=== PATIENT | male | born 1940 | race Caucasian/White ===

== ENCOUNTER 2019-03-04 18:22 | Observation (INO) | payer MEDICARE, OTHER ==
[~2019-03-04] VITALS: Ht 190.5 cm; Wt 109.9 kg
[2019-03-04] MEDS ORDERED: FLOM0.4C39 PO (18:37)
[2019-03-04] MEDS ORDERED: ASPI81TA85 PO (18:37)
[2019-03-04] MEDS ORDERED: LYRI150C PO (18:37)
[2019-03-04] MEDS ORDERED: COUM7.5T PO (18:37)
[2019-03-04] MEDS ORDERED: MAGN1CAP PO (18:37)
[2019-03-04] MEDS ORDERED: FAMO1TAB25 PO (18:37)
[2019-03-04] MEDS ORDERED: SIMV10TA2 PO (18:37)
[2019-03-04] MEDS ORDERED: NS 1,000 ML IV ONE (20:30)
[2019-03-04] MEDS: TAMSULOSIN 0.4 MG CAP PO SCH (21:00)
[2019-03-04 21:11] LABS: BASO % 0.3 % (0.0-1.0); EOS # 0.3 10^3/uL (0.0-0.50); EOS % 4.2 % (0.0-3.0); HEMATOCRIT 41.2 % (42.0-52.0); HEMOGLOBIN 13.5 g/dl (13.5-17.5); LYMPH # 2.2 10^3/uL (1.5-4.5); LYMPH % 35.9 % (24.0-44.0); MEAN CORPUSCULAR HEMOGLOBIN 32.9 pg (27.0-33.0); MEAN CORPUSCULAR HGB CONC 32.8 g/dl (32.0-36.5); MEAN CORPUSCULAR VOLUME 100.5 fl (80.0-96.0); MONO # 0.6 10^3/uL (0.0-0.8); MONO % 10.3 % (0.0-5.0); PLATELET COUNT, AUTOMATED 160 10^3/uL (150-450); WHITE BLOOD COUNT 6.2 10^3/uL (4.0-10.0)
[2019-03-04 21:22] LABS: INR 2.52; PARTIAL THROMBOPLASTIN TIME 47.9 SECONDS (25.0-38.4)
[2019-03-04 21:32] LABS: ERYTHROCYTE SEDIMENTATION RATE 8 mm/hr (0-20)
[2019-03-04 21:34] LABS: ALBUMIN 3.4 GM/DL (3.2-5.2); ALT/SGPT 27 U/L (12-78); BILIRUBIN,DIRECT 0.3 MG/DL (0.0-0.2); BILIRUBIN,TOTAL 0.5 MG/DL (0.2-1.0); BLOOD UREA NITROGEN 9 MG/DL (7-18); CALCIUM LEVEL 8.7 MG/DL (8.8-10.2); CARBON DIOXIDE LEVEL 33 MEQ/L (21-32); CHLORIDE LEVEL 106 MEQ/L (98-107); CREATININE FOR GFR 0.75 MG/DL (0.70-1.30); GLOMERULAR FILTRATION RATE > 60.0 (>35); GLUCOSE, FASTING 90 MG/DL (70-100); POTASSIUM SERUM 4.3 MEQ/L (3.5-5.1); SODIUM LEVEL 142 MEQ/L (136-145); TOTAL PROTEIN 6.5 GM/DL (6.4-8.2)
[2019-03-04] MEDS ORDERED: WARF-23 PO (23:07)
[2019-03-04] MEDS ORDERED: CLEO300C2 PO (23:09)
[2019-03-04] MEDS ORDERED: MAALOX 30 ML SUSP *UDC PO PRN (23:45)
[2019-03-04] MEDS ORDERED: MOM 30ML SUSPENSION UDC PO PRN (23:45)
[2019-03-04] MEDS ORDERED: ACETAMINOPHEN TAB 650MG DOSE (2X325MG) PO PRN (23:45)
--- NOTE | 2019-03-04 23:54 | HPEPDOC ---
General Date of Admission 03/04/19 Date of Service: Mar 04, 2019 Attending Physician: MICHELA MARROQUIN MD Chief Complaint The patient is a 78-year-old male admitted with a reason for visit of Leg Pain. Source: Patient Exam Limitations: No limitations Timing/Duration: Day(s) (7-10 days) Severity: Mild Associated Symptoms: Other History of Present Illness 78 years old white male with past medical history of hyperlipidemia, aortic wall replacement, 2 knee replacements, had developed cellulitis of his right lower extremity below the knee and just above the right ankle with swelling and he was seen by his doctor at [facility] and was started on by mouth antibiotics. Patient did not respond to the by mouth antibiotics. His leg is slightly decreased swelling but is still red and verrucous-like formation at the right lower extreme just above the medial malleolus. Patient presented to [facility] ED for possible admission. Patient denies chest pain, shortness of breath, nausea, vomiting, difficulty ambulation, etc. Home Medications Scheduled Aspirin (Aspir 81) 81 Mg Tablet.dr, 81 MG PO QHS, (Reported) Clindamycin Hcl (Cleocin HCl) 300 Mg Capsule, 300 MG PO Q8H, (Reported) TO TAKE X 10 DAYS. PATIENT STATES THAT HE HAS ONE CAPSULE LEFT IN HIS BOTTLE. Famotidine (Famotidine) 10 Mg Tablet, 5 MG PO DAILY, (Reported) Magnesium Oxide (Magnesium) 500 Mg Capsule, 500 MG PO DAILY, (Reported) Pregabalin (Lyrica) 150 Mg Capsule, 150 MG PO BID, (Reported) Simvastatin (Simvastatin) 10 Mg Tablet, 10 MG PO DAILY, (Reported) Tamsulosin HCl (Flomax) 0.4 Mg Capsule, 0.8 MG PO QHS, (Reported) Warfarin Sodium (Coumadin) 7.5 Mg Tablet, 7.5 MG PO 5XW, (Reported) SUN/THU/THU/THU/SAT Warfarin Sodium (Warfarin Sodium) 5 Mg Tablet, 5 MG PO 2XW, (Reported) / Allergies Coded Allergies: No Known Allergies (Unverified , 03/04/19) Past Medical History Medical History Hyperlipidemia, aortic wall replacement, bilateral knee replacement Surgical History Bilateral knee replacement and aortic wall replacement Family History Father had heart disease and mother had breast cancer Social History * Smoker: Denies Alcohol: Denies Drugs: denies A-FIB/CHADSVASC A-FIB History Current/History of A-Fib/PAF?: No Review of Systems Constitutional: Denies: Chills, Fever, Malaise, Night Sweats, Weakness, Fatigue, Weight Loss, Lethargy, Other Eyes: Denies: Pain, Vision change, Conjunctivae inflammation, Eyelid inflammation, Redness, Other ENT: Denies: Head Aches, Ear Pain, Dysphagia, Sinus Congestion, Post Nasal Drip, Sore Throat, Epistaxis, Other Symptoms Skin: Denies: Rash, Lesions, Jaundice, Bruising, Itching, Dry, Breakdown, Nail Changes, Other Pulmonary: Denies: Dyspnea, Cough, Pleuritic Chest Pain, Other Symptoms Cardiovascular: Denies: Chest Pain, Palpitations, Orthopnea, Paroxysmal Noc. Dyspnea, Edema, Lt Headedness, Other Symptoms Gastrointestinal: Denies: Nausea, Vomiting, Abdominal Pain, Diarrhea, Constipation, Melena, Hematochezia, Other Symptoms Genitourinary: Denies: Dysuria, Frequency, Incontinence, Hematuria, Retention, Other Symptoms Hematologic: Denies: Bruising, Bleeding Excessively, Petecchia, Purpura, Enlarged Lymph Nodes, Other Hematologic Endocrine: Denies: Polydipsia, Polyphagia, Polyuria, Heat Intolerance, Cold Intolerance, Other Endocrine Sx Musculoskeletal: Reports: Other Symptoms (, redness, swelling and some overall wound at the right lower extremity. On medial aspect just above the medial malleolus) Neurological: Reports: Weakness Psych: Reports: Mood Normal Physical Examination General Exam: Positive: Alert, Cooperative Eye Exam: Positive: PERRLA, Conjunctiva & lids normal ENT Exam: Positive: Atraumatic, Mucous membr. moist/pink Neck Exam: Positive: Supple Chest Exam: Positive: Clear to auscultation Heart Exam: Positive: Rate Normal, Normal S1, Normal S2 Abdomen Exam: Positive: Normal bowel sounds, Soft Extremity Exam: Positive: Normal pulses Skin Exam: Positive: Other skin issue (, redness and swelling of the right lower activity below the calf and above the ankle with crusted wound is above the medial malleolus) Neuro Exam: Positive: Strength at 5/5 X4 ext, Normal Tone Psych Exam: Positive: Mental status NL, Mood NL, Oriented x 3 Vital Signs Vital Signs Date Time Temp Pulse Resp B/P (MAP) Pulse Ox O2 Delivery O2 Flow Rate FiO2 03/04/19 23:23 97.6 45 127/76 (93) 100 03/04/19 18:23 18 Room Air Laboratory Data Labs 24H Laboratory Tests 2 03/04/19 21:02: Immature Granulocyte % (Auto) 0.3, White Blood Count 6.2, Red Blood Count 4.10L, Hemoglobin 13.5, Hematocrit 41.2L, Mean Corpuscular Volume 100.5H, Mean Corpuscular Hemoglobin 32.9, Mean Corpuscular Hemoglobin Concent 32.8, Red Cell Distribution Width 15.2H, Platelet Count 160, Neutrophils (%) (Auto) 49.0, Lymphocytes (%) (Auto) 35.9, Monocytes (%) (Auto) 10.3H, Eosinophils (%) (Auto) 4.2H, Basophils (%) (Auto) 0.3, Neutrophils # (Auto) 3.0, Lymphocytes # (Auto) 2.2, Monocytes # (Auto) 0.6, Eosinophils # (Auto) 0.3, Basophils # (Auto) 0.0, Nucleated Red Blood Cells % (auto) 0.0, Erythrocyte Sedimentation Rate 8, P rothrombin Time 27.0H, Prothromb Time International Ratio 2.52, Activated Partial Thromboplast Time 47.9H, Anion Gap 3L, Glomerular Filtration Rate > 60.0, Lactic Acid Level 0.5, Calcium Level 8.7L, Aspartate Amino Transf (AST/SGOT) 31, Alanine Aminotransferase (ALT/SGPT) 27, Alkaline Phosphatase 96, Total Bilirubin 0.5, Direct Bilirubin 0.3H, C-Reactive Protein, Quantitative 0.90H, Total Protein 6.5, Albumin 3.4, Albumin/Globulin Ratio 1.10 03/04/19 21:13: POC Glucose (Misc Panel) 91, POC Sodium (Misc Panel) 140, POC Potassium (Misc Panel) 4.1, POC Chloride (Misc Panel) 99, POC Total CO2 (Misc Panel) 30.0H, POC Blood Urea Nitrogen (Misc Panel 7L, POC Ionized Calcium (Misc Panel) 4.8, POC Creatinine (Misc Panel) 0.9, POC Hematocrit (Misc Panel) 40.0 CBC/BMP Laboratory Tests 03/04/19 21:02 Red Blood Count 4.10 L, Mean Corpuscular Volume 100.5 H, Mean Corpuscular Hemoglobin 32.9, Mean Corpuscular Hemoglobin Concent 32.8, Red Cell Distribution Width 15.2 H, Neutrophils (%) (Auto) 49.0, Lymphocytes (%) (Auto) 35.9, Monocytes (%) (Auto) 10.3 H, Eosinophils (%) (Auto) 4.2 H, Basophils (%) (Auto) 0.3, Neutrophils # (Auto) 3.0, Lymphocytes # (Auto) 2.2, Monocytes # (Auto) 0.6, Eosinophils # (Auto) 0.3, Basophils # (Auto) 0.0 Microbiology Microbiology 03/04/19 Blood Culture, Received Pending Problems (1) Cellulitis of right lower extremity Status: Acute Problem Text: 78 years old white male with only past medical history of hyperlipidemia, aortic valve replacement With chief complaint of nonhealing right lower extremity cellulitis, which she sustained while he fell down about 7-10 days ago. Patient was treated with by mouth antibiotics and outpatient without any success and hence he decided come to emergency room for further care. Admit to medical floor Normal saline 800 mL per hour Teflaro 400 mg IV every 12 hours Leg Doppler right lower extremity to rule out any abscess Patient already on Coumadin, which is within therapeutic INR Elevated right lower extremity Wound cultures Close monitoring Hospital, DC on by mouth antibiotics once improved (2) Hyperlipemia Problem Text: Under control with home meds (3) Aortic valve replaced Problem Text: INR is therapeutic , Asymptomatic and stable Plan / VTE VTE Prophylaxis Ordered?: Yes MICHELA MARROQUIN MD Mar 04, 2019 23:54
[2019-03-05] MEDS: ASPIRIN 81 MG ENTERIC TAB PO SCH ×2 (00:22→20:08)
[2019-03-05] MEDS: PREGABALIN 75 MG CAP(LYRICA) PO SCH ×3 (00:22→20:07)
[2019-03-05] MEDS: TAMSULOSIN 0.4 MG CAP PO SCH ×2 (00:22→20:07)
[2019-03-05 01:40] VITALS: BP 151/89
--- NOTE | 2019-03-05 01:40 | REPVR ---
EXAM: US Right Non-Vascular Joint or Other Extremity Structure, Limited Lower Extremity EXAM DATE/TIME: 03/05/2019 12:23 AM CLINICAL HISTORY: 78 years old, male; Pain; Ankle; Right; Additional info: R/O abscess rle TECHNIQUE: Imaging protocol: Right US Non-Vascular Joint or Other Extremity Structure. Limited exam of the lower extremity. A total of 11 images are submitted, following completion, for remote interpretation. COMPARISON: No relevant prior studies available. FINDINGS: Imaging is performed at an area labeled on the images as "area of redness, right ankle". Based on the images provided, the location of the imaged area with respect to the ankle joint is uncertain. The ankle joint itself does not appear to be imaged. Sonographic visualization is upto a depth of 2.5 cm. If a deeper abscess is suspected, consider CT or MRI for further assessment. Within the sonographic field of view, no fluid collection is seen to suggest an abscess. There is slight heterogeneity of visualized soft tissues some of which appear to represent prominent vascularity and the remainder which may represent edema and/or cellulitis. IMPRESSION: Findings and recommendations discussed above. Electronically signed by: Nathanael Pena On 03/05/2019 01:39:28 AM
[2019-03-05] MEDS ORDERED: PERCOCET 5MG/325MG TAB PO PRN (01:45)
[2019-03-05] MEDS: CEFTAROLINE FOSAMIL 400 MG in D5W MINI-BAG PLUS 50 ML IV SCH ×2 (01:53→11:17)
[2019-03-05] MEDS: PERCOCET 5MG/325MG TAB PO PRN ×2 (02:21→10:16)
[2019-03-05 06:51] LABS: HEMATOCRIT 43.1 % (42.0-52.0); HEMOGLOBIN 13.8 g/dl (13.5-17.5); MEAN CORPUSCULAR HEMOGLOBIN 32.4 pg (27.0-33.0); MEAN CORPUSCULAR VOLUME 101.2 fl (80.0-96.0); PLATELET COUNT, AUTOMATED 162 10^3/uL (150-450); RED BLOOD COUNT 4.26 10^6/uL (4.30-6.10); WHITE BLOOD COUNT 5.1 10^3/uL (4.0-10.0)
[2019-03-05 07:22] LABS: ALBUMIN 3.3 GM/DL (3.2-5.2); ALT/SGPT 24 U/L (12-78); BLOOD UREA NITROGEN 7 MG/DL (7-18); CALCIUM LEVEL 8.6 MG/DL (8.8-10.2); CARBON DIOXIDE LEVEL 30 MEQ/L (21-32); CHLORIDE LEVEL 110 MEQ/L (98-107); GLOMERULAR FILTRATION RATE > 60.0 (>35); GLUCOSE, FASTING 93 MG/DL (70-100); MAGNESIUM LEVEL 2.2 MG/DL (1.8-2.4); POTASSIUM SERUM 4.1 MEQ/L (3.5-5.1); SODIUM LEVEL 145 MEQ/L (136-145); TOTAL PROTEIN 6.6 GM/DL (6.4-8.2)
--- NOTE | 2019-03-05 07:31 | REP ---
Right tibia-fibula five views: There are no comparisons. There are no lytic, blastic or destructive skeletal changes. However, there is subtle cortical irregularity of the medial cortex at the junction of the proximal and middle thirds and periosteal reactive change laterally at the junction of the middle and distal thirds. There is no fracture or dislocation. There is a right knee arthroplasty with the components tightly applied and in satisfactory positions alignment. There is vascular calcified atheroma in the posterior anterior tibial arteries. Impression: There are no lytic, blastic or destructive skeletal changes. However, there is evidence for periosteal reactive change as described. Electronically Signed by Farhad Alcantara MD 03/05/2019 07:22 A
[2019-03-05 08:00] VITALS: BP 125/80
[2019-03-05] MEDS: DOCUSATE SODIUM 100 MG CAP PO SCH ×2 (09:15→20:07)
[2019-03-05] MEDS: SIMVASTATIN 10 MG TAB PO SCH (09:15)
--- NOTE | 2019-03-05 12:46 | IPNPDOC ---
Date Seen The patient was seen on 03/05/19. Progress Note SUBJECTIVE:Pt says his pain is better controlled withoxycodone he takes at home, and that the percocet just makes him sleepy. when he ambulates, his right calf enlarged, but returns to normal when he lays down. He has kept his right leg elevated jazzmine pillow overnight,and the swelling has signficantly improved. he lives with his at home, and feels he can manage at hospital discharge. He i s anxious to go home, but open to staying one more night for antibiotics with dc plans thursday. OBJECTIVE Physical Examination Vitals: pls see below General Exam: Positive: Alert, Cooperative Eye Exam: Positive: PERRLA, Conjunctiva & lids normal ENT Exam: Positive: Atraumatic, Mucous membr. moist/pink Neck Exam: Positive: Supple Chest Exam: Positive: Clear to auscultation Heart Exam: Positive: Rate Normal, Normal S1, Normal S2 Abdomen Exam: Positive: Normal bowel sounds, Soft Extremity Exam: Positive: Normal pulses Skin Exam: Positive: Other skin issue (, redness and swelling of the right lower activity below the calf and above the ankle with crusted wound is above the medial malleolus) Neuro Exam: Positive: Strength at 5/5 X4 ext, Normal Tone Psych Exam: Positive: Mental status NL, Mood NL, Oriented x 3 ADMISSSION LABORATORY DATA: 03/04/19 21:02: Immature Granulocyte % (Auto) 0.3, White Blood Count 6.2, Red Blood Count 4.10L, Hemoglobin 13.5, Hematocrit 41.2L, Mean Corpuscular Volume 100.5H, Mean Corpuscular Hemoglobin 32.9, Mean Corpuscular Hemoglobin Concent 32.8, Red Cell Distribution Width 15.2H, Platelet Count 160, Neutrophils (%) (Auto) 49.0, Lymphocytes (%) (Auto) 35.9, Monocytes (%) (Auto) 10.3H, Eosinophils (%) (Auto) 4.2H, Basophils (%) (Auto) 0.3, Neutrophils # (Auto) 3.0, Lymphocytes # (Auto) 2.2, Monocytes # (Auto) 0.6, Eosinophils # (Auto) 0.3, Basophils # (Auto) 0.0, Nucleated Red Blood Cells % (auto) 0.0, Erythrocyte Sedimentation Rate 8, Proth rombin Time 27.0H, Prothromb Time International Ratio 2.52, Activated Partial Thromboplast Time 47.9H, Anion Gap 3L, Glomerular Filtration Rate > 60.0, Lactic Acid Level 0.5, Calcium Level 8.7L, Aspartate Amino Transf (AST/SGOT) 31, Alanine Aminotransferase (ALT/SGPT) 27, Alkaline Phosphatase 96, Total Bilirubin 0.5, Direct Bilirubin 0.3H, C-Reactive Protein, Quantitative 0.90H, Total Protein 6.5, Albumin 3.4, Albumin/Globulin Ratio 1.10 03/04/19 21:13: POC Glucose (Misc Panel) 91, POC Sodium (Misc Panel) 140, POC Potassium (Misc Panel) 4.1, POC Chloride (Misc Panel) 99, POC Total CO2 (Misc Panel) 30.0H, POC Blood Urea Nitrogen (Misc Panel 7L, POC Ionized Calcium (Misc Panel) 4.8, POC Creatinine (Misc Panel) 0.9, POC Hematocrit (Misc Panel) 40.0 CBC/BMP Laboratory Tests 03/04/19 21:02 Red Blood Count 4.10 L, Mean Corpuscular Volume 100.5 H, Mean Corpuscular Hemoglobin 32.9, Mean Corpuscular Hemoglobin Concent 32.8, Red Cell Distribution Width 15.2 H, Neutrophils (%) (Auto) 49.0, Lymphocytes (%) (Auto) 35.9, Monocytes (%) (Auto) 10.3 H, Eosinophils (%) (Auto) 4.2 H, Basophils (%) (Auto) 0.3, Neutrophils # (Auto) 3.0, Lymphocytes # (Auto) 2.2, Monocytes # (Auto) 0.6, Eosinophils # (Auto) 0.3, Basophils # (Auto) 0.0 Microbiology Microbiology 03/04/19 Blood Culture, Received Pending ASSESSMENT AND PLAN:78 years old white male with past medical history of hyperlipidemia, aortic wall replacement, 2 knee replacements, had developed cellulitis of his right lower extremity below the knee and just above the right ankle with swelling and he was seen by his doctor at [facility] and was started on by mouth antibiotics. Patient did not respond to the by mouth antibiotics. His leg is slightly decreased swelling but is still red and verrucous-like formation at the right lower extreme just above the medial malleolus. Patient presented to [facility] ED for possible admission. Patient denies chest pain, shortness of breath, nausea, vomiting, difficulty ambulation, etc. ACUTE ISSUES ARE: Cellulitis of right lower extremity Status: Acute Problem Text: 78 years old white male with only past medical history of hyperlipidemia, aortic valve replacement With chief complaint of nonhealing right lower extremity cellulitis, which she sustained while he fell down about 7-10 days ago. Patient was treated with by mouth antibiotics and outpatient without any success and hence he decided come to emergency room for further care. Admit to medical floor Normal saline 800 mL per hour Teflaro 400 mg IV every 12 hours Leg Doppler right lower extremity to rule out any abscess Patient already on Coumadin, which is within therapeutic INR Elevated right lower extremity Wound cultures Close monitoring Hospital, DC on by mouth antibiotics once improved Hyperlipemia Problem Text: Under control with home meds Aortic valve replaced Problem Text: INR is therapeutic , Asymptomatic and stable DISPO: await PT clearance and wound care recommendations Plan / VTE VTE Prophylaxis Ordered?: Yes VS, I&O, 24H, [facility] Vital Signs/I&O Vital Signs Date Time Temp Pulse Resp B/P (MAP) Pulse Ox O2 Delivery O2 Flow Rate FiO2 03/05/19 08:00 97.1 81 17 125/80 (95) 98 03/04/19 18:23 Room Air I&O- Last 24 Hours up to 6 AM 03/05/19 06:00 Intake Total 1050 ml Balance 1050 ml Laboratory Data 24H LABS Laboratory Tests 2 03/04/19 21:02: Immature Granulocyte % (Auto) 0.3, White Blood Count 6.2, Red Blood Count 4.10L, Hemoglobin 13.5, Hematocrit 41.2L, Mean Corpuscular Volume 100.5H, Mean Corpuscular Hemoglobin 32.9, Mean Corpuscular Hemoglobin Concent 32.8, Red Cell Distribution Width 15.2H, Platelet Count 160, Neutrophils (%) (Auto) 49.0, Lymphocytes (%) (Auto) 35.9, Monocytes (%) (Auto) 10.3H, Eosinophils (%) (Auto) 4.2H, Basophils (%) (Auto) 0.3, Neutrophils # (Auto) 3.0, Lymphocytes # (Auto) 2.2, Monocytes # (Auto) 0.6, Eosinophils # (Auto) 0.3, Basophils # (Auto) 0.0, Nucleated Red Blood Cells % (auto) 0.0, Erythrocyte Sedimentation Rate 8, Prothrombin Time 27.0H, Prothromb Time International Ratio 2.52, Activated Partial Thromboplast Time 47.9H, Anion Gap 3L, Glomerular Filtration Rate > 60.0, Lactic Acid Level 0.5, Calcium Level 8.7L, Aspartate Amino Transf (AST/SGOT) 31, Alanine Aminotransferase (ALT/SGPT) 27, Alkaline Phosphatase 96, Total Bilirubin 0.5, Direct Bilirubin 0.3H, C-Reactive Protein, Quantitative 0.90H, Total Protein 6.5, Albumin 3.4, Albumin/Globulin Ratio 1.10 03/04/19 21:13: POC Glucose (Misc Panel) 91, POC Sodium (Misc Panel) 140, POC Potassium (Misc [place]) 4.1, POC Chloride (Misc Panel) 99, POC Total CO2 (Misc Panel) 30.0H, POC Blood Urea Nitrogen (Misc Panel 7L, POC Ionized Calcium (Misc Panel) 4.8, POC Creatinine (Misc Panel) 0.9, POC Hematocrit (Misc Panel) 40.0 03/05/19 06:36: Nucleated Red Blood Cells % (auto) 0.0, Anion Gap 5L, Glomerular Filtration Rate > 60.0, Calcium Level 8.6L, Aspartate Amino Transf (AST/SGOT) 27, Alanine Aminotransferase (ALT/SGPT) 24, Alkaline Phosphatase 95, Total Bilirubin 1.0#, Total Protein 6.6, Albumin 3.3, Albumin/Globulin Ratio 1.00, Blood Urea Nitrogen 7, Creatinine 0.80, Sodium Level 145, Potassium Level 4.1, Chloride Level 110H, Carbon Dioxide Level 30, Magnesium Level 2.2 CBC/BMP Laboratory Tests 03/04/19 21:02 Red Blood Count 4.10 L, Mean Corpuscular Volume 100.5 H, Mean Corpuscular Hemoglobin 32.9, Mean Corpuscular Hemoglobin Concent 32.8, Red Cell Distribution Width 15.2 H, Neutrophils (%) (Auto) 49.0, Lymphocytes (%) (Auto) 35.9, Monocytes (%) (Auto) 10.3 H, Eosinophils (%) (Auto) 4.2 H, Basophils (%) (Auto) 0.3, Neutrophils # (Auto) 3.0, Lymphocytes # (Auto) 2.2, Monocytes # (Auto) 0.6, Eosinophils # (Auto) 0.3, Basophils # (Auto) 0.0 03/05/19 06:36 Red Blood Count 4.26 L, Mean Corpuscular Volume 101.2 H, Mean Corpuscular Hemoglobin 32.4, Mean Corpuscular Hemoglobin Concent 32.0, Red Cell Distribution Width 15.1 H, Calcium Level 8.6 L, Aspartate Amino Transf (AST/SGOT) 27, Alanine Aminotransferase (ALT/SGPT) 24, Alkaline Phosphatase 95, Total Bilirubin 1.0 #, Total Protein 6.6, Albumin 3.3 Microbiology Microbiology 03/05/19 Blood Culture, Received Pending 03/04/19 Blood Culture, Received Pending FERN RUIZ MD Mar 05, 2019 09:10
[2019-03-05] MEDS ORDERED: oxyCODONE 5MG TAB PO ONE (15:15)
[2019-03-05 16:00] VITALS: BP 120/72
[2019-03-05] MEDS: WARFARIN SOD 7.5 MG TAB PO SCH (16:14)
[2019-03-05 20:00] VITALS: BP 120/69
[2019-03-05] MEDS: oxyCODONE 5MG TAB PO PRN (20:08)
[2019-03-06] VITALS: BP 122/67
[2019-03-06] MEDS: CEFTAROLINE FOSAMIL 400 MG in D5W MINI-BAG PLUS 50 ML IV SCH ×2 (00:24→12:25)
[2019-03-06 04:00] VITALS: BP 113/85
[2019-03-06] MEDS: oxyCODONE 5MG TAB PO PRN (04:36)
[2019-03-06 08:00] VITALS: BP 136/84
[2019-03-06 08:07] LABS: BASO % 0.3 % (0.0-1.0); EOS # 0.4 10^3/uL (0.0-0.50); EOS % 4.8 % (0.0-3.0); HEMATOCRIT 46.1 % (42.0-52.0); HEMOGLOBIN 14.7 g/dl (13.5-17.5); LYMPH # 1.5 10^3/uL (1.5-4.5); LYMPH % 18.6 % (24.0-44.0); MEAN CORPUSCULAR HEMOGLOBIN 31.5 pg (27.0-33.0); MEAN CORPUSCULAR HGB CONC 31.9 g/dl (32.0-36.5); MEAN CORPUSCULAR VOLUME 98.9 fl (80.0-96.0); MONO # 0.4 10^3/uL (0.0-0.8); MONO % 5.2 % (0.0-5.0); NEUTROPHILS # 5.6 10^3/uL (1.8-7.7); NEUTROPHILS % 70.8 % (36.0-66.0); PLATELET COUNT, AUTOMATED 184 10^3/uL (150-450); RED BLOOD COUNT 4.66 10^6/uL (4.30-6.10); WHITE BLOOD COUNT 7.9 10^3/uL (4.0-10.0)
[2019-03-06 08:22] LABS: BLOOD UREA NITROGEN 9 MG/DL (7-18); C REACTIVE PROTEIN QUANTITATIV 0.93 MG/DL (0.00-0.30); CALCIUM LEVEL 8.4 MG/DL (8.8-10.2); CARBON DIOXIDE LEVEL 31 MEQ/L (21-32); CHLORIDE LEVEL 108 MEQ/L (98-107); CREATININE FOR GFR 0.92 MG/DL (0.70-1.30); GLOMERULAR FILTRATION RATE > 60.0 (>35); GLUCOSE, FASTING 94 MG/DL (70-100); POTASSIUM SERUM 4.4 MEQ/L (3.5-5.1); SODIUM LEVEL 141 MEQ/L (136-145)
[2019-03-06 08:23] LABS: INR 2.55; PROTHROMBIN TIME 27.3 SECONDS (11.8-14.0)
[2019-03-06 08:33] LABS: ERYTHROCYTE SEDIMENTATION RATE 4 mm/hr (0-20)
[2019-03-06] MEDS: SIMVASTATIN 10 MG TAB PO SCH (08:51)
[2019-03-06] MEDS: DOCUSATE SODIUM 100 MG CAP PO SCH ×2 (08:51→21:26)
[2019-03-06] MEDS: PREGABALIN 75 MG CAP(LYRICA) PO SCH ×2 (08:51→21:26)
--- NOTE | 2019-03-06 15:21 | IPNPDOC ---
Date Seen The patient was seen on 03/06/19. Progress Note SUBJECTIVE:MRSA screen negative. iv ceftaroline discontinued. on cefazolin until discharge on thursday at which point he will be changed to po keflex. Pt is anxious to go home because his daughter is home from [facility]. No fever or chills overnight and decreased swelling inthe right leg. Awaiting wound care recommendations. Pt says his pain is better controlled with oxycodone he takes at home, and that the percocet just makes him sleepy. when he ambulates, his right calf enlarged, but returns to normal when he lays down. He has kept his right leg elevated jazzmine pillow overnight,and the swelling has signficantly improved. he lives with his at home, and feels he can manage at hospital discharge. He is anxious to go home, but open to staying one more night for antibiotics with dc plans Thursday after teleconferencing with Dr. Gallagher. OBJECTIVE Physical Examination Vitals: pls see below General Exam: Positive: Alert, Cooperative Eye Exam: Positive: PERRLA, Conjunctiva & lids normal ENT Exam: Positive: Atraumatic, Mucous membr. moist/pink Neck Exam: Positive: Supple Chest Exam: Positive: Clear to auscultation Heart Exam: Positive: Rate Normal, Normal S1, Normal S2 Abdomen Exam: Positive: Normal bowel sounds, Soft Extremity Exam: Positive: Normal pulses Skin Exam: Positive: Other skin issue (, redness and swelling of the right lower activity below the calf and above the ankle with crusted wound is above the medial malleolus) Neuro Exam: Positive: Strength at 5/5 X4 ext, Normal Tone Psych Exam: Positive: Mental status NL, Mood NL, Oriented x 3 ADMISSSION LABORATORY DATA: 03/04/19 21:02: Immature Granulocyte % (Auto) 0.3, White Blood Count 6.2, Red Blood Count 4.10L, Hemoglobin 13.5, Hematocrit 41.2L, Mean Corpuscular Volume 100.5H, Mean Corpus cular Hemoglobin 32.9, Mean Corpuscular Hemoglobin Concent 32.8, Red Cell Distribution Width 15.2H, Platelet Count 160, Neutrophils (%) (Auto) 49.0, Lymphocytes (%) (Auto) 35.9, Monocytes (%) (Auto) 10.3H, Eosinophils (%) (Auto) 4.2H, Basophils (%) (Auto) 0.3, Neutrophils # (Auto) 3.0, Lymphocytes # (Auto) 2.2, Monocytes # (Auto) 0.6, Eosinophils # (Auto) 0.3, Basophils # (Auto) 0.0, Nucleated Red Blood Cells % (auto) 0.0, Erythrocyte Sedimentation Rate 8, Prothrombin Time 27.0H, Prothromb Time International Ratio 2.52, Activated Partial Thromboplast Time 47.9H, Anion Gap 3L, Glomerular Filtration Rate > 60.0, Lactic Acid Level 0.5, Calcium Level 8.7L, Aspartate Amino Transf (AST/SGOT) 31, Alanine Aminotransferase (ALT/SGPT) 27, Alkaline Phosphatase 96, Total Bilirubin 0.5, Direct Bilirubin 0.3H, C-Reactive Protein, Quantitative 0.90H, Total Protein 6.5, Albumin 3.4, Albumin/Globulin Ratio 1.10 03/04/19 21:13: POC Glucose (Misc Panel) 91, POC Sodium (Misc Panel) 140, POC Potassium (Misc Panel) 4.1, POC Chloride (Misc Panel) 99, POC Total CO2 (Misc Panel) 30.0H, POC Blood Urea Nitrogen (Misc Panel 7L, POC Ionized Calcium (Misc Panel) 4.8, POC Creatinine (Misc Panel) 0.9, POC Hematocrit (Misc Panel) 40.0 CBC/BMP Laboratory Tests 03/04/19 21:02 Red Blood Count 4.10 L, Mean Corpuscular Volume 100.5 H, Mean Corpuscular Hemoglobin 32.9, Mean Corpuscular Hemoglobin Concent 32.8, Red Cell Distribution Width 15.2 H, Neutrophils (%) (Auto) 49.0, Lymphocytes (%) (Auto) 35.9, Monocytes (%) (Auto) 10.3 H, Eosinophils (%) (Auto) 4.2 H, Basophils (%) (Auto) 0.3, Neutrophils # (Auto) 3.0, Lymphocytes # (Auto) 2.2, Monocytes # (Auto) 0.6, Eosinophils # (Auto) 0.3, Basophils # (Auto) 0.0 Microbiology Microbiology 03/04/19 Blood Culture, Received Pending ASSESSMENT AND PLAN:78 years old white male with past medical history of hyperlipidemia, aortic wall replacement, 2 knee replacements, had developed cellulitis of his right lower extremity below the knee and just above the right ankle with swelling and he was seen by his doctor at [facility] and was started on by mouth antibiotics. Patient did not respond to the by mouth antibiotics. His leg is slightly decreased swelling but is still red and verrucous-like formation at the right lower extreme just above the medial malleolus. Patient presented to [facility] ED for possible admission. Patient denies chest pain, shortness of breath, nausea, vomiting, difficulty ambulation, etc. ACUTE ISSUES ARE: Cellulitis of right lower extremity Status: Acute Problem Text: 78 years old white male with only past medical history of hyperlipidemia, aortic valve replacement With chief complaint of nonhealing right lower extremity cellulitis, which she sustained while he fell down about 7-10 days ago. Patient was treated with by mouth antibiotics and outpatient without any success and hence he decided come to emergency room for further care. Admit to medical floor Normal saline 800 mL per hour s/p Teflaro 400 mg IV every 12 hours Leg Doppler right lower extremity negative on cefazolin as MRSA screen was negative Patient already on Coumadin, which is within therapeutic INR Elevated right lower extremity Wound cultures Close monitoring Hospital, [place] on by mouth antibiotics once improved Hyperlipemia Problem Text: Under control with home meds Aortic valve replaced Problem Text: INR is therapeutic , Asymptomatic and stable dispo: mi home thursday teleconference with dr. gallagher prior to dc home. Plan / VTE VTE Prophylaxis Ordered?: Yes VS, I&O, 24H, Fishbone Vital Signs/I&O Vital Signs Date Time Temp Pulse Resp B/P (MAP) Pulse Ox O2 Delivery O2 Flow Rate FiO2 03/06/19 08:00 98.0 18 18 136/84 (101) 96 03/04/19 18:23 Room Air I&O- Last 24 Hours up to 6 AM 03/06/19 06:00 Intake Total 1870 ml Output Total 1600 ml Balance 270 ml Laboratory Data 24H LABS Laboratory Tests 2 03/06/19 07:37: Immature Granulocyte % (Auto) 0.3, White Blood Count 7.9, Red Blood Count 4.66, Hemoglobin 14.7, Hematocrit 46.1, Mean Corpuscular Volume 98.9H, Mean Corpuscular Hemoglobin 31.5, Mean Corpuscular Hemoglobin Concent 31.9L, Red Cell Distribution Width 15.2H, Platelet Count 184, Neutrophils (%) (Auto) 70.8H, Lymphocytes (%) (Auto) 18.6L, Monocytes (%) (Auto) 5.2H, Eosinophils (%) (Auto) 4.8H, Basophils (%) (Auto) 0.3, Neutrophils # (Auto) 5.6, Lymphocytes # (Auto) 1.5, Monocytes # (Auto) 0.4, Eosinophils # (Auto) 0.4, Basophils # (Auto) 0.0, Nucleated Red Blood Cells % (auto) 0.0, Erythrocyte Sedimentation Rate 4, Prothrombin Time 27.3H, Prothromb Time International Ratio 2.55, Anion Gap 2L, Glomerular Filtration Rate > 60.0, Blood Urea Nitrogen 9, Creatinine 0.92, Sodium Level 141, Potassium Level 4.4, Chloride Level 108H, Carbon Dioxide Level 31, Calcium Level 8.4L, C-Reactive Protein, Quantitative 0.93H 03/06/19 08:52: Methicillin-Resist S.aureus DNA PCR NOT DETECTED CBC/BMP Laboratory Tests 03/06/19 07:37 Red Blood Count 4.66, Mean Corpuscular Volume 98.9 H, Mean Corpuscular Hemoglobin 31.5, Mean Corpuscular Hemoglobin Concent 31.9 L, Red Cell Distribution Width 15.2 H, Neutrophils (%) (Auto) 70.8 H, Lymphocytes (%) (Auto) 18.6 L, Monocytes (%) (Auto) 5.2 H, Eosinophils (%) (Auto) 4.8 H, Basophils (%) (Auto) 0.3, Neutrophils # (Auto) 5.6, Lymphocytes # (Auto) 1.5, Monocytes # (Au to) 0.4, Eosinophils # (Auto) 0.4, Basophils # (Auto) 0.0, Calcium Level 8.4 L Microbiology Microbiology 03/05/19 Blood Culture - Preliminary, Resulted No growth after 24 hours . All specim... 03/04/19 Blood Culture - Preliminary, Resulted No growth after 24 hours . All specim... FERN RUIZ MD Mar 06, 2019 15:20
[2019-03-06 16:00] VITALS: BP 129/80
[2019-03-06] MEDS: WARFARIN SOD 7.5 MG TAB PO SCH (17:25)
[2019-03-06 20:00] VITALS: BP 133/87
[2019-03-06] MEDS: ceFAZolin SOD 2 GM in IV 1 EA IV SCH (21:25)
[2019-03-06] MEDS: TAMSULOSIN 0.4 MG CAP PO SCH (21:26)
[2019-03-06] MEDS: ASPIRIN 81 MG ENTERIC TAB PO SCH (21:26)
[2019-03-07 04:00] VITALS: BP 127/75
[2019-03-07] MEDS: ceFAZolin SOD 2 GM in IV 1 EA IV SCH (05:30)
[2019-03-07] MEDS ORDERED: KEFL500C17 PO ×2 (06:19→08:21)
[2019-03-07] MEDS ORDERED: BACITAB PO ×2 (06:19→08:21)
[2019-03-07 08:00] VITALS: BP 142/97
[2019-03-07] MEDS: SIMVASTATIN 10 MG TAB PO SCH (08:55)
[2019-03-07] MEDS: PREGABALIN 75 MG CAP(LYRICA) PO SCH (08:55)
[2019-03-07] MEDS: DOCUSATE SODIUM 100 MG CAP PO SCH (08:55)
--- NOTE | 2019-03-07 15:26 | DS.PDOC ---
Discharge Summary General Date of Admission Mar 04, 2019 at 18:23 Date of Discharge March 07, 2019 Discharge Summary DISCHARGE DIAGNOSES: DISCHARGE MEDICATIONS: PLS SEE BELOW HISTORY OF PRESENTING ILLNESS: 78 years old white male with past medical history of hyperlipidemia, aortic wall replacement, 2 knee replacements, had developed cellulitis of his right lower extremity below the knee and just above the right ankle with swelling and he was seen by his doctor at [place] and was started on by mouth antibiotics. Patient did not respond to the by mouth antibiotics. His leg is slightly decreased swelling but is still red and verrucous-like formation at the right lower extreme just above the medial malleolus. Patient presented to [facility] ED for possible admission. Patient denies chest pain, shortness of breath, nausea, vomiting, difficulty ambulation, etc. HOSPITAL COURSE Infected right venous ulcer with Cellulitis of right lower extremity s/p Teflaro 400 mg IV every 12 hours Leg Doppler right lower extremity negative changed to cefazolin as MRSA screen was negative Patient already on Coumadin, which is within therapeutic INR Elevated right lower extremity Wound cultures ordred dressing changes per community living specialist bid referred to Dr. Sanford as outpt for nonhealing venous ulcer with RLE celllitis MRSA screen negative. iv ceftaroline discontinued. on cefazolin until discharge on thursday at which point he will be changed to po keflex. Pt is anxious to go home because his daughter is home from [facility]. No fever or chills overnight and decreased swelling inthe right leg. Awaiting wound care recommendations. Pt says his pain is better controlled with oxycodone he takes at home, and that the percocet just makes him sleepy. when he ambulates, his right calf enlarged, but returns to normal when he lays down. He has kept his right leg elevated jazzmine pillow overnight,and the swelling has signficantly improved. he lives with his at home, and feels he can manage at hospital discharge. He is anxious to go home, but open to staying one more night for antibiotics with dc plans Thursday after teleconferencing with Dr. Sanford. Hyperlipidemia Problem Text: Under control with home meds Aortic valve replaced Problem Text: INR is therapeutic , Asymptomatic and stable OBJECTIVE Physical Examination Vitals: pls see below General Exam: Positive: Alert, Cooperative Eye Exam: Positive: PERRLA, Conjunctiva & lids normal ENT Exam: Positive: Atraumatic, Mucous membr. moist/pink Neck Exam: Positive: Supple Chest Exam: Positive: Clear to auscultation Heart Exam: Positive: Rate Normal, Normal S1, Normal S2 Abdomen Exam: Positive: Normal bowel sounds, Soft Extremity Exam: Positive: Normal pulses Skin Exam: Positive: Other skin issue (, redness and swelling of the right lower activity below the calf and above the ankle with crusted wound is above the medial malleolus) Neuro Exam: Positive: Strength at 5/5 X4 ext, Normal Tone Psych Exam: Positive: Mental status NL, Mood NL, Oriented x 3 ADMISSSION LABORATORY DATA: 03/04/19 21:02: Immature Granulocyte % (Auto) 0.3, White Blood Count 6.2, Red Blood Count 4.10L, Hemoglobin 13.5, Hematocrit 41.2L, Mean Corpuscular Volume 100.5H, Mean Corpuscular Hemoglobin 32.9, Mean Corpuscular Hemoglobin Concent 32.8, Red Cell Distribution Width 15.2H, Platelet Count 160, Neutrophils (%) (Auto) 49.0, Lymphocytes (%) (Auto) 35.9, Monocytes (%) (Auto) 10.3H, Eosinophils (%) (Auto) 4.2H, Basophils (%) (Auto) 0.3, Neutrophils # (Auto) 3.0, Lymphocytes # (Auto) 2.2, Monocytes # (Auto) 0.6, Eosinophils # (Auto) 0.3, Basophils # (Auto) 0.0, Nucleated Red Blood Cells % (auto) 0.0, Erythrocyte Sedimentation Rate 8, Prothrombin Time 27.0H, Prothromb Time International Ratio 2.52, Activated Partial Thromboplast Time 47.9H, Anion Gap 3L, Glomerular Filtration Rate > 60.0, Lactic Acid Level 0.5, Calcium Level 8.7L, Aspartate Amino Transf (AST/SGOT) 31, Alanine Aminotransferase (ALT/SGPT) 27, Alkaline Phosphatase 96, Total Bilirubin 0.5, Direct Bilirubin 0.3H, C-Reactive Protein, Quantitative 0.90H, Total Protein 6.5, Albumin 3.4, Albumin/Globulin Ratio 1.10 03/04/19 21:13: POC Glucose (Misc Panel) 91, POC Sodium (Misc Panel) 140, POC Potassium (Misc Panel) 4.1, POC Chloride (Misc Panel) 99, POC Total CO2 (Misc Panel) 30.0H, POC Blood Urea Nitrogen (Misc Panel 7L, POC Ionized Calcium (Misc Panel) 4.8, POC Creatinine (Misc Panel) 0.9, POC Hematocrit (Misc Panel) 40.0 CBC/BMP Laboratory Tests 03/04/19 21:02 [Image 0] Red Blood Count 4.10 L, Mean Corpuscular Volume 100.5 H, Mean Corpuscular Hemoglobin 32.9, Mean Corpuscular Hemoglobin Concent 32.8, Red Cell Distribution Width 15.2 H, Neutrophils (%) (Auto) 49.0, Lymphocytes (%) (Auto) 35.9, Monocyte s (%) (Auto) 10.3 H, Eosinophils (%) (Auto) 4.2 H, Basophils (%) (Auto) 0.3, Neutrophils # (Auto) 3.0, Lymphocytes # (Auto) 2.2, Monocytes # (Auto) 0.6, Eosinophils # (Auto) 0.3, Basophils # (Auto) 0.0 Microbiology Microbiology 03/04/19 Blood Culture, Received negative TIME SPENT ON DISCHARGE: 32 MINUTES Vital Signs/I&Os Vital Signs Date Time Temp Pulse Resp B/P (MAP) Pulse Ox O2 Delivery O2 Flow Rate FiO2 03/07/19 08:00 97.6 79 18 142/97 (112) 99 03/04/19 18:23 Room Air I&O- Last 24 Hours up to 6 AM 03/07/19 05:59 Intake Total 2020 ml Output Total 2630 ml Balance -610 ml Microbiology Microbiology 03/05/19 Blood Culture - Preliminary, Resulted No Growth after 48 hours. All Specime... 03/04/19 Blood Culture - Preliminary, Resulted No Growth after 48 hours. All Specime... Discharge Medications Scheduled Aspirin (Aspir 81) 81 Mg Tablet.dr, 81 MG PO QHS, (Reported) Cephalexin (Keflex) 500 Mg Capsule, 500 MG PO QID Clindamycin Hcl (Cleocin HCl) 300 Mg Capsule, 300 MG PO Q8H, (Reported) TO TAKE X 10 DAYS. PATIENT STATES THAT HE HAS ONE CAPSULE LEFT IN HIS BOTTLE. Famotidine (Famotidine) 10 Mg Tablet, 5 MG PO DAILY, (Reported) L.acidoph/L.bulg/B.bif/S.therm (Bacid Caplet) 1 Each Tablet, 1 TAB PO WMHS Magnesium Oxide (Magnesium) 500 Mg Capsule, 500 MG PO DAILY, (Reported) Pregabalin (Lyrica) 150 Mg Capsule, 150 MG PO BID, (Reported) Simvastatin (Simvastatin) 10 Mg Tablet, 10 MG PO DAILY, (Reported) Tamsulosin HCl (Flomax) 0.4 Mg Capsule, 0.8 MG PO QHS, (Reported) Warfarin Sodium (Coumadin) 7.5 Mg Tablet, 7.5 MG PO 5XW, (Reported) SUN/THU/THU/THU/THU Warfarin Sodium (Warfarin Sodium) 5 Mg Tablet, 5 MG PO 2XW, (Reported) / Allergies Coded Allergies: No Known Allergies (Unverified , 03/04/19) FERN RUIZ MD Mar 07, 2019 15:26
[2019-03-08] MEDS ORDERED: WARFARIN SOD 5 MG TAB PO SCH (17:00)
== END 2019-03-07 11:50 | disposition home or self-care (01) ==
LOC: M ED 18:22 → M ED INP 18:23 → M PED 03-05 01:20
PROVIDERS: ADMIT Internal Medicine; ATTEND Internal Medicine
DX: L03.115 Cellulitis of right lower limb (principal); E78.49 Other hyperlipidemia; Z95.2 Presence of prosthetic heart valve; Z79.01 Long term (current) use of anticoagulants; Z79.899 Other long term (current) drug therapy; Z79.82 Long term (current) use of aspirin
CPT/HCPCS: 36415; 73590; 76882; 80047; 80048; 80053; 80076; 83605; 83735; 85025; 85027; 85610; 85652; 85730; 86140; 87040; 87641; 96361; 96365; 96366; 96375; 97161; 99284; G0378; J0690; J0712